=== PATIENT | male | born 1930 | race Caucasian/White ===

== ENCOUNTER → 2018-03-22 | Outpatient (REF) | payer MEDICARE, OTHER ==
[~2018-03-22] MED LIST: ADLT ASA LOW81 MG PO; ALEVE220 M1 PO; ALLOPURINOL100 MG PO; AMOXICILLIN500 MG PO; ASPIRIN LOW DOS81 M2 PO; BRILINTA90 MG PO; DIOVAN80 MG PO; FLOMAX0.4 M1 PO; GLIPIZIDE ER5 M1 PO; HYDROCHLOROT12.5 MG PO; LISINOP/HCTZ1 TA1 PO; LISINOP/HCTZ1 TAB PO; METFORMIN500 MG PO; METOPROLOL TART50 MG PO; MOBIC7.5 M1 PO; NITROSTAT0.4 MG PO; PLAVIX75 MG PO; SIMVASTATIN10 MG PO; TAM75CAP PO; TRIAMCINOLONE A0.12 EX; ZPAK PO
[2018-03-22 08:48] LABS: ANION GAP 12 (6-22 (CALC)); BUN 21 mg/dL (8-23); BUN/CREATININE RATIO 23 (12-20 (CALC)); CARBON DIOXIDE 27 mmol/l (22-30); CHLORIDE 108 mmol/l (95-108); CREATININE 0.9 mg/dL (0.7-1.3); GFR > 60 ML/MIN (>=60 (CALC)); GFR FOR AFR.AMER. > 60 ML/MIN (>=60 (CALC)); POTASSIUM 4.3 mmol/l (3.5-5.1); SODIUM 142 mmol/l (137-146)
== END | disposition home or self-care (01) ==
LOC: LAB 07:36
PROVIDERS: ATTEND Internal Medicine
DX: E11.29 Type 2 diabetes mellitus with other diabetic kidney complication (principal); M10.9 Gout, unspecified

== ENCOUNTER → 2018-03-28 | Outpatient (REF) | payer MEDICARE, OTHER | END | disposition home or self-care (01) | LOC: LAB 10:47 | PROVIDERS: ATTEND Internal Medicine | DX: E11.29 Type 2 diabetes mellitus with other diabetic kidney complication (principal) ==

== ENCOUNTER → 2018-08-07 | Outpatient (REF) | payer MEDICARE, OTHER ==
[2018-08-07 12:01] LABS: ANION GAP 15 (6-22 (CALC)); BUN 27 mg/dL (8-23); BUN/CREATININE RATIO 21 (12-20 (CALC)); CARBON DIOXIDE 29 mmol/l (22-30); CHLORIDE 103 mmol/l (95-108); CREATININE 1.3 mg/dL (0.7-1.3); GFR 52 ML/MIN (>=60 (CALC)); GFR FOR AFR.AMER. > 60 ML/MIN (>=60 (CALC)); POTASSIUM 4.1 mmol/l (3.5-5.1); SODIUM 142 mmol/l (137-146)
== END | disposition home or self-care (01) ==
LOC: LAB 09:54
PROVIDERS: ATTEND Internal Medicine
DX: I10 Essential (primary) hypertension (principal)

== ENCOUNTER → 2018-09-06 | Outpatient (REF) | payer MEDICARE, OTHER ==
[2018-09-06 09:02] LABS: HEMATOCRIT 34.6 % (39.0-50.0); HEMOGLOBIN 11.2 g/dl (14.0-18.0); MEAN CELL VOLUME 102.1 fL CALC (80.0-100.0); MEAN CORPUSCULAR HGB CONC 32.4 g/L CALC (32.0-36.0); RED BLOOD COUNT 3.39 mill/uL (4.70-6.10); RED CELL DISTRI WIDTH 14.1 % (11.5-15.5)
[2018-09-06 09:29] LABS: ALBUMIN 3.4 g/dL (3.2-5.0); ALKALINE PHOSPHATASE 51 u/l (38-126); ANION GAP 11 (6-22 (CALC)); BILIRUBIN, TOTAL 0.4 mg/dL (0.0-1.4); BUN 23 mg/dL (8-23); BUN/CREATININE RATIO 22 (12-20 (CALC)); CALCULATED LDLCHOLESTEROL 44 mg/dL (62-129 (CALC)); CARBON DIOXIDE 26 mmol/l (22-30); CHLORIDE 109 mmol/l (95-108); CHOLESTEROL HDL RATIO 3.2 (<4.4 (CALC)); CREATININE 1.1 mg/dL (0.7-1.3); GFR > 60 ML/MIN (>=60 (CALC)); GFR FOR AFR.AMER. > 60 ML/MIN (>=60 (CALC)); HDL CHOLESTEROL 30 mg/dL (>=40); POTASSIUM 4.2 mmol/l (3.5-5.1); SGOT/AST 16 u/l (19-48); SODIUM 142 mmol/l (137-146); TOTAL CHOLESTEROL 96 mg/dl (0-199); TOTAL PROTEIN 5.6 g/dL (6.3-8.2); TOTAL TRIGLYCERIDES 112 mg/dl (30-149); VLDL CHOLESTROL 22 mg/dl (0-38 (CALC))
[2018-09-06 09:53] LABS: TSH, 3RD GENERATION 5.67 uIU/mL (0.47 - 4.68)
== END | disposition home or self-care (01) ==
LOC: LAB 07:59
PROVIDERS: ATTEND Nurse Practitioner
DX: E11.29 Type 2 diabetes mellitus with other diabetic kidney complication (principal); E78.49 Other hyperlipidemia; I10 Essential (primary) hypertension

== ENCOUNTER 2018-10-17 07:16 | Observation (INO) | payer MEDICARE, OTHER ==
[2018-10-17] VITALS (9 sets, daily range): BP systolic 107–164; BP diastolic 33–77
[~2018-10-17] VITALS: Ht 170.2 cm; Wt 95.3 kg
[~2018-10-17 07:16] MED LIST changes: +FUROSEMIDE20 MG PO; +LOSARTAN POT50 MG PO; +MICROZIDE12.5 MG
[2018-10-17] MEDS ORDERED: LANTUS100 UNIT/M SC (07:38)
--- NOTE | 2018-10-17 10:36 | NUR ---
PT CAME VIA STRETCHER . X4 PERSON TRANSFER PT TO BED. REPORT RECEIVED FROM EMY CHAMBERS. PT DENIES PAIN AT THIS TIME. PT UNABLE TO MOVE LEGS. PT ABLE TO FEEL TOUCH IN KNEES. SAFETY PRECAUTIONS REINFORCED AND CALL LIGHT IN REACH.
--- NOTE | 2018-10-17 11:15 | NUR ---
ASSESSMENT DONE. PT IS A&O X3. RESPS EVEN AND UNLABORED. PT ABLE TO MOVE LEGS AND FEEL TOUCH TO LEGS. SCD IN PLACE. IVF INFUSING WELL. INCISION IS CDI. PT DENIES NEEDS AT THIS TIME. CALL LIGHT IN REACH.
--- NOTE | 2018-10-17 16:28 | NUR ---
MEDICATED PT WITH LORTAB FOR PAIN 11/26 SEE EMAR. PT IS VISITING WITH FRIEND. PT DENIES ANY OTHER NEEDS AT THIS TIME. CALL LIGHT IN REACH.
--- NOTE | 2018-10-17 19:15 | NUR ---
REPORT FROM [facility]. PT SITTING UP IN BED. ALERT AND ORIENTED. PT DENIES ANY PAIN OR DISCOMFORT. 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 IV SITE APPEARS HEALTHY. DISCUSSED POC AND SAFETY PRECAUTIONS. PT VERBALIZED UNDERSTANDING. SCDS IN PLACE. CALL LIGHT WITHIN REACH. WILL CONTINUE TO MONITOR.
--- NOTE | 2018-10-17 23:50 | NUR ---
ASSISTED PT UP AT THIS TIME. PT SPILLED URINAL IN BED. LINENS CHANGED. PT AMBULATED IN SHI X1 PERSON STAND BY ASSISTED. PT AMBULATED WITH STEADY GATE AND TOLERATED WELL. PT DENIES ANY PAIN OR DISCOMFORT. INCISION CDI. PROVIDED CLEAN GOWN AND ASSISTED BACK TO BED. SCDS RE-APPLIED. CALL LIGHT WITHIN REACH. WILL CONTINUE TO MONITOR.
[2018-10-18 00:05] VITALS: BP 153/72
--- NOTE | 2018-10-18 03:20 | NUR ---
ASSISTED PT TO BATHROOM. PT VOIDED WITHOUT DIFFICULTY. ASSISTED BACK TO BED. SCDS IN PLACE. CALL LIGHT WITHIN REACH. WILL CONTINUE TO MONITOR.
[2018-10-18 04:05] VITALS: BP 148/67
--- NOTE | 2018-10-18 07:30 | NUR ---
REPORT RECEIVED FROM J LUIS POLANCO. PT SUPINE IN BED. REPORTS MODERATE PAIN TO RIGHT GROIN INCISION AREA. PT ASSISTED TO SITTING. LORTAB PO ADMINISTERED FOR PAIN. REPORTING OF CONCERNS ENCOURAGED. PT AMBUALTED TO RESTROOM FOR BATHING. STEADY GAIT. CALL LIGHT REVIEWED AND IN REACH. PT STATES UNDERSTANDING OF INFORMATION.
[2018-10-18 07:33] VITALS: BP 145/85
--- NOTE | 2018-10-18 09:30 | NUR ---
DR. BOLAND CONTACTED FOR UPDATE ON PT. PT STATES HE IS READY FOR DISCHARGE. DR. RAMÍREZ AGREES.
--- NOTE | 2018-10-18 11:05 | NUR ---
Discharge instructions given. Patient verbalizes understanding of same. Discharged in stable condition via Wheelchair to Home with friend. All belongings sent with pt.
== END 2018-10-18 11:04 | disposition home or self-care (01) ==
LOC: ORM 07:16 → MS2 10:40
PROVIDERS: ADMIT Surgery; ATTEND Surgery
PROC: 0YU50JZ Supplement Right Inguinal Region with Synthetic Substitute, Open Approach (ICD-10-PCS; principal; 2018-10-17)
PROC: 0VBF0ZZ Excision of Right Spermatic Cord, Open Approach (ICD-10-PCS; 2018-10-17)
DX: K40.90 Unilateral inguinal hernia, without obstruction or gangrene, not specified as recurrent (principal); D17.6 Benign lipomatous neoplasm of spermatic cord; I10 Essential (primary) hypertension; E11.9 Type 2 diabetes mellitus without complications
CPT/HCPCS: C9290